=== PATIENT | female | born 1995 | race Caucasian/White ===

== ENCOUNTER 2023-08-21 18:23 | Emergency (ER) | payer MEDICAID ==
[~2023-08-21] VITALS: Ht 162.6 cm; Wt 81.0 kg
[2023-08-21 18:28] VITALS: TEMP 98.1; O2SAT 100
[2023-08-21] MEDS ORDERED: CETI10CA2 MT (19:51)
[2023-08-21 20:18] VITALS: BP 141/86; PULSE 85; RESP 17
== END 2023-08-21 20:20 | disposition home or self-care (01) ==
LOC: ER 18:23
DX: J30.81 Allergic rhinitis due to animal (cat) (dog) hair and dander (principal); R06.02 Shortness of breath
CPT/HCPCS: 71045; 99283

== ENCOUNTER 2024-04-30 07:07 | Emergency (ER) | payer MEDICAID ==
[~2024-04-30] VITALS: Ht 165.1 cm; Wt 87.0 kg
[~2024-04-30 07:07] MED LIST: CETI10CA2 MT
[2024-04-30 07:12] VITALS: O2SAT 100
[2024-04-30 07:22] VITALS: BP 129/80; PULSE 89; RESP 16; TEMP 36.7; O2SAT 100
[2024-04-30] MEDS ORDERED: ACET-3800 MT (07:57)
[2024-04-30] MEDS: ACETAMINOPHEN 325MG TABLET PO ONE (08:35)
== END 2024-04-30 08:50 | disposition home or self-care (01) ==
LOC: ER 07:07
DX: S99.912A Unspecified injury of left ankle, initial encounter (principal); X50.1XXA Overexertion from prolonged static or awkward postures, initial encounter; Y93.89 Activity, other specified; Y92.89 Other specified places as the place of occurrence of the external cause; Y99.8 Other external cause status
CPT/HCPCS: 29515; 73610; 99283